=== PATIENT | female | born 2000 | race Caucasian/White ===

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

== ENCOUNTER 2023-04-15 14:54 | Outpatient (REF) | payer MEDICAID, SELFPAY ==
[2023-04-16 09:14] LABS: BV Int Neg Control Negative (Negative); BV Int Pos Control Positive (Positive)
[2023-04-16 15:37] LABS: CT PCR NOT DETECTED (Not Detect.); NG PCR NOT DETECTED (Not Detect.)
== END 2023-04-15 14:55 | disposition home or self-care (01) ==
LOC: HO.LNP 14:54
PROVIDERS: PCP Nurse Practitioner Pediatrics; Visit Provider Obstetrics & Gynecology
DX: B37.31 Acute candidiasis of vulva and vagina (principal)
CPT/HCPCS: 0353U; 87480; 87510; 87660; 99212

== ENCOUNTER 2023-04-15 14:54 | Outpatient (AMB) | payer MEDICAID, SELFPAY ==
--- NOTE | 2023-04-15 14:57 | A.OFFVIS_ITS ---
Intake Vital Signs 04/15/23 15:03 Height 5 ft 2 in Weight 199 lb BMI 36.4 BP 116/68 Intake Visit Reasons: vaginal discharge Treatment Coordinator Required: No Information Interpreted: non-clinical & clinical Tower Switch Operator: Tower Switch Operator Present (Lynnette PERLA) Accompanied by: Mother Allergies pollen extracts [POLLEN] Allergy (Mild, Verified 04/15/23 15:03) RUNNY NOSE SNEEZING SEASONAL ALLERGIES Allergy (Unknown, Uncoded 04/15/23 15:03) SNEEZING, WATERY EYES Is last menstrual period known: Yes Last menstrual period: 03/19/23 HPI HPI Comments History of Present Illness Details Presenting complaining of vaginal discharge associated with vulvovaginal itching, no foul odor PFSH Family History Maternal Aunt Breast CA Social History Household Members: Family Alcohol intake: never Patient Tobacco Use Status: Never used Tobacco Use of substances other than those prescribed or required for medical reasons: Yes Substance Use Type: Marijuana Sexually active: Yes Sexual orientation: Lesbian/Frazier/Homosexual Gender identity: Female Female Reproductive History Menstrual Age of Menarche: 13 Date of last menstrual period: 03/19/23 Review of Systems Const All systems reviewed & are unremarkable except as noted in HPI and below Physical Exam Vital Signs: Last Vital Signs BP 116/68 04/15/23 15:03 BMI result Body Mass Index 36.4 General: Yes no CVA tenderness External Female Exam: normal external appearance and normal appearance of the urethra Speculum Exam - Vagina: normal appearance of the vagina, normal palpation, no lesions and no masses Speculum Exam - Cervix: normal appearance of the cervix, normal palpation, no lesions, no masses and nontender Bimanual exam- vagina & uterus: normal bimanual exam, normal palpation, uterine size normal, normal palpation, uterine shape normal, No Cervical tenderness present and non-tender Bimanual Exam- Adnexa, other: normal adnexae Back/Spine/Pelvis Back: no CVA tenderness Assessment & Plan Assessment & Plan (1) Vulvovaginitis shonda albicans: Code(s): B37.31 - Acute candidiasis of vulva and vagina Plan: GC/CT, Bacterial Vaginosis panel taken, Diflucan 150 mg x 1 p.o. was sent to the patient's pharmacy. The patient was instructed to call if symptoms don't improve in 48 hours. Medications: New fluconazole (Diflucan) 150 mg PO ONCE 1 tab 0RF 1 day Coding Level of Care Code Est Pt Level 3 (44714) Diagnoses Vulvovaginitis shonda albicans B37.31
[2023-04-15 15:03] VITALS: BP 116/68; BMI 36.4
== END 2023-04-15 15:16 | disposition home or self-care (01) ==
LOC: HO.HWS 14:54
PROVIDERS: PCP Nurse Practitioner Pediatrics; Visit Provider Obstetrics & Gynecology
DX: B37.31 Acute candidiasis of vulva and vagina (principal)
CPT/HCPCS: 99213